=== PATIENT | male | born 1990 | race Caucasian/White ===

== ENCOUNTER 2017-09-05 14:17 | Emergency (ER) | payer OTHER ==
[2017-09-05 14:25] VITALS: BP 122/58; PULSE 69; RESP 18; TEMP 97.6
[2017-09-05] MEDS ORDERED: KETOROLAC 30 MG/ML 1 ML VIAL IM STA (14:30)
[2017-09-05] MEDS ORDERED: ORPHENADRINE 30 MG/ML 2 ML VIAL IM STA (14:30)
--- NOTE | 2017-09-05 14:36 | ED ---
Back Pain HPI - General Chief Complaint: Back Pain/Injury Stated Complaint: back pain Time Seen by Provider: 09/05/17 14:25 Source: patient, RN notes reviewed Limitations: no limitations - History of Present Illness Initial Comments: This is a 26-year-old male who presents to the emergency department with chief complaint of low back injury. Patient states that prior to arrival he was at the gym. He states that he was lifting. He states that he felt a "slip" in his lower back and a sharp shooting pain. He states that he slowly lowered bar and stood there for a few minutes. Patient states that he has difficulty ambulating due to the pain in his low back. He states that he feels a sharp shooting pain going up his spine and down his legs. Denies saddle paresthesias or loss of bladder or bowel function. Denies numbness or tingling. Denies any other injury or trauma. Denies fever or chills, abdominal pain, nausea or vomiting, dizziness or headache. - Related Data Previous Rx's Medication Instructions Recorded Cyclobenzaprine [Flexeril] 10 mg PO TID #15 tab 09/05/17 Ibuprofen 600 mg PO Q6HR #30 tablet 09/05/17 Allergies Allergy/AdvReac Type Severity Reaction Status Date / Time amoxicillin Allergy Rash/Hives Verified 09/05/17 14:35 Review of Systems ROS Statement: Those systems with pertinent positive or pertinent negative responses have been documented in the HPI. ROS Other: All systems not noted in ROS Statement are negative. Past Medical History Past Medical History: No Reported History History of Any Multi-Drug Resistant Organisms: None Reported Additional Past Surgical History / Comment(s): Brooks teeth removed, ingrown toenail Past Psychological History: No Psychological Hx Reported Smoking Status: Former smoker Past Alcohol Use History: None Reported Past Drug Use History: None Reported General Exam - General Exam Comments Initial Comments: General: Awake and alert, well-developed; in no apparent distress. Appears to be uncomfortable and in pain. Patient has difficulty maneuvering due to pain. HEENT: Head atraumatic, normocephalic. Pupils are equal, round and reactive to light. Extraocular movements intact. Oropharynx moist without erythema or exudate. Neck: Supple. Normal ROM. Cardiovascular: Regular rate and rhythm. No murmurs, rubs or gallops. Chest symmetrical. Respiratory: Lungs clear to auscultation bilaterally. No wheezes, rales or rhonchi. Normal respiratory effort with no use of accessory muscles. Musculoskeletal: Limited range of motion of the spine due to pain. There is generalized tenderness on palpation of low back. No bony point vertebral tenderness or SI joint tenderness. Sensation is intact. Pedal and posterior tibial pulses are 2+ equal and palpable bilaterally. Skin: [place], warm and dry without rashes or lesions. Neurological: Alert and oriented x3. CN II-XII grossly intact. Speech is fluent and answers are appropriate. No focal neuro deficits. Psychiatric: Normal mood and affect. No overt signs of depression or anxiety noted. Limitations: no limitations Course Vital Signs 09/05/17 14:21 Temperature 97.6 F Pulse Rate 69 Respiratory 18 Rate Blood Pressure 122/58 O2 Sat by Pulse 98 Oximetry Medical Decision Making - Medical Decision Making This is a 26-year-old male who presents to the emergency department with chief complaint of low back injury. Patient denies any saddle paresthesias or loss of bladder or bowel function. He denies any numbness or tingling. X-ray of lumbar spine revealed evidence for very mild degenerative narrowing of L5 to S1. No fractures or malalignment noted. Patient states that after receiving Toradol and Norflex he does feel a bit better and has less difficulty standing up. Patient likely suffering from a muscle strain or possible slipped disc. Patient is to follow-up with his primary care provider within the next 1-2 days. He states that his primary provider is in [place], [place]. He will be given prescriptions for ibuprofen as well as Flexeril. Patient's vital signs are stable and he is in no acute distress. Findings and plan were discussed with him. He is in agreement and voices understanding. All questions were answered. - Radiology Data Radiology results: report reviewed Lumbar spine x-ray impression: There may be very mild degenerative disc interspace narrowing at L5 to S1. No vertebral compression collapse or malalignment. Disposition Clinical Impression: Strain of lumbar region Disposition: HOME SELF-CARE Condition: Good Instructions: Acute Low Back Pain (ED), Low Back Strain (ED), Lower Back Exercises (ED), Exercise Safety (ED) Additional Instructions: Please follow up with primary care provider within 1-2 days. Please rest and take medications as prescribed. Please return to the emergency department if any concerns arise or there are worsening of symptoms. Please return to the emergency department if you develop any numbness or tingling in the pelvic region or loss of bladder/bowel function. Prescriptions: Cyclobenzaprine [Flexeril] 10 mg PO TID #15 tab Ibuprofen 600 mg PO Q6HR #30 tablet Referrals: None,Stated [Primary Care Provider] - 1-2 days Time of Disposition: 15:25
--- NOTE | 2017-09-05 15:02 | XR ---
EXAMINATION TYPE: XR lumbar spine 2 or 3V DATE OF EXAM: 09/05/2017 COMPARISON: NONE HISTORY: 26-year-old male low back pain after lifting today TECHNIQUE: 3 views FINDINGS: 5 lumbar type vertebral bodies. Very mild degenerative disc interspace narrowing L5-S1. Vertebral bod y heights are preserved and alignment is maintained. IMPRESSION: There may be very mild degenerative disc interspace narrowing at L5-S1. No vertebral compression deb apse or malalignment.
== END 2017-09-05 15:37 | disposition home or self-care (01) ==
LOC: EC 14:17
DX: S39.012A Strain of muscle, fascia and tendon of lower back, initial encounter (principal); M48.07 Spinal stenosis, lumbosacral region; Z87.891 Personal history of nicotine dependence; Z88.0 Allergy status to penicillin; X50.0XXA Overexertion from strenuous movement or load, initial encounter; Y92.39 Other specified sports and athletic area as the place of occurrence of the external cause; Y93.89 Activity, other specified
CPT/HCPCS: 99283 ×2; 96372 ×3; 72100; J2360; J1885